=== PATIENT | female | born 1990 | race Caucasian/White ===

== ENCOUNTER 2023-04-14 07:06 | Outpatient (CLI) | payer BC, SELFPAY ==
--- NOTE | 2023-04-14 07:15 | CRLHL7_ITS ---
For Patients: As a result of the Century Cures Act, medical imaging exams and procedure reports are released immediately into your electronic medical record. You may view this report before your referring provider. If you have questions, please contact your health care provider. INDICATION: ABDOMINAL DISTENSION COMPARISON: none TECHNIQUE: 2D lindsay scale and color Doppler images were acquired of the pelvis using a transabdominal and transvaginal approach. FINDINGS: Sonographic images demonstrate a normal size and smooth outer contour of the uterus. Uterus measures 9.5 cm in length by 2.9 cm in AP diameter by 4.8 cm in transverse dimension. The myometrium has a normal uniform echotexture. The endometrial lining appears normal and measures 7 mm in composite thickness. The right ovary measures 5.2 x 2.0 x 4.0 cm in size and the left ovary measures 4.2 x 1.9 x 2.9 cm. Right ovarian volume 21.6 cc. Left ovarian volume 11.8 cc. The ovaries demonstrate normal arterial and venous blood flow on color Doppler analysis. There are no suspicious fluid collections within the cul-de-sac. IMPRESSION: Enlarged right ovary. Multiple ovarian follicles are present. Consider PCOS. No pelvic free fluid. Dictated by Bonilla Lieberman MD @ 04/14/2023 9:02:15 AM (Electronically Signed)
== END 2023-04-14 07:07 | disposition home or self-care (01) ==
LOC: US 07:08
PROVIDERS: PCP Obstetrics & Gynecology; Visit Provider Physician Assistant
DX: R14.0 Abdominal distension (gaseous) (principal); N83.201 Unspecified ovarian cyst, right side
CPT/HCPCS: 76830; 76856; 80061; 82947; 83498; 83525; 84146; 84270; 84402; 84403; 84443